=== PATIENT | female | born 1985 | race Caucasian/White ===

== ENCOUNTER 2019-09-10 20:51 | Emergency (ER) | payer OTHER ==
[2019-09-10 21:00] VITALS: BP 122/72; PULSE 88; TEMP 98.5; BMI 31.6
[2019-09-10] MEDS ORDERED: IBUPROFEN 600 MG TABLET (FP) PO ONE ×2 (21:20→21:25)
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
== END 2019-09-10 21:57 | disposition home or self-care (01) ==
LOC: FER 20:51 → SUPCPDRO 20:51 → FER 21:57
DX: J20.9 Acute bronchitis, unspecified (principal)
CPT/HCPCS: 71045-TC-FY; 99284-25; U0003

== ENCOUNTER 2020-02-03 16:47 | Emergency (ER) | payer OTHER ==
[2020-02-03] MEDS ORDERED: DALBAVANCIN HCL 1,500 MG in DEXTROSE 5%-WATER - 500 ML IVPB ONE (17:05)
[2020-02-03 17:27] VITALS: TEMP 99.4; BMI 32.0
[2020-02-03 18:16] VITALS: BP 105/64; PULSE 87
[2020-02-03] MEDS ORDERED: CEPHALEXIN MONOHYDRATE 500 MG CAPSULE (UD) PO ONE (18:34)
[2020-02-03] MEDS ORDERED: SULFAMETHOXAZOLE/TRIMETHOPRIM 800MG/160MG D.S. TABLET PO ONE (18:34)
[2020-02-03] MEDS ORDERED: CEPHALEXIN MONOHYDRATE 500 MG CAPSULE (UD) ONE (18:37)
[2020-02-03] MEDS ORDERED: SULFAMETHOXAZOLE/TRIMETHOPRIM 800MG/160MG D.S. TABLET ONE (18:37)
[2020-02-03 19:31] LABS: EPITHELIAL CELLS MODERATE /hpf; URINE MUCUS 1+
[2020-02-03 21:42] LABS: COCAINE, UR NEGATIVE ng/ml (CUTOFF=300); METHADONE, UR NEGATIVE ng/ml (CUTOFF=300); URINE BARBITURATES NEGATIVE ng/ml (CUTOFF=200)
[2020-02-03 21:43] LABS: PHENCYCLIDINE,URINE NEGATIVE ng/ml (CUTOFF=25); URINE AMPHETAMINES NEGATIVE ng/ml (CUTOFF=500)
[2020-02-03 21:46] LABS: URINE BENZODIAZEPINES NEGATIVE ng/ml (CUTOFF=200)
[2020-02-03 21:49] LABS: OPIATES, URI POSITIVE ng/ml (CUTOFF=300)
== END 2020-02-03 19:00 ==
LOC: FER 16:47
PROC: 0H9DXZZ Drainage of Right Lower Arm Skin, External Approach (ICD-10-PCS; principal; 2020-02-03)
PROC: 3E03329 Introduction of Other Anti-infective into Peripheral Vein, Percutaneous Approach (ICD-10-PCS; 2020-02-03)
DX: M65.031 Abscess of tendon sheath, right forearm (principal)
CPT/HCPCS: 80307; 81003; 81015; 84703; 87070; 87205; 99285-25

== ENCOUNTER 2020-02-06 15:44 | Emergency (ER) | payer OTHER ==
[2020-02-06 15:52] VITALS: BP 132/79; PULSE 94; TEMP 98; BMI 31.8
== END 2020-02-06 16:11 | disposition home or self-care (01) ==
LOC: FER 15:44
DX: L02.414 Cutaneous abscess of left upper limb (principal); Z48.01 Encounter for change or removal of surgical wound dressing
CPT/HCPCS: 99281-25

== ENCOUNTER 2022-03-14 18:22 | Inpatient (IN) | payer OTHER ==
[2022-03-14 19:12] VITALS: BMI 34.0
[2022-03-14] MEDS ORDERED: MELATONIN 5 MG TABLETS PO PRN (19:51)
[2022-03-14] MEDS ORDERED: POLYETHYLENE GLYCOL (HEALTHYLAX) 3350 17 GM PACKET PO PRN (19:51)
[2022-03-14] MEDS ORDERED: ACETAMINOPHEN 325 MG TABLET (FP) PO PRN ×2 (19:51)
[2022-03-14] MEDS ORDERED: NALOXONE HCL (KLOXXADO) 8 MG SPRAY NS PRN (19:51)
[2022-03-14] MEDS ORDERED: P-EPHED 60MG/TRIPROLIDI 2.5MG TABLET PO PRN (19:51)
[2022-03-14] MEDS ORDERED: MAG HYDROX/AL HYDROX/SIMETH 30 ML UNIT-DOSE CUP PO PRN (19:51)
[2022-03-14] MEDS ORDERED: BENZOCAINE/MENTHOL (CHLORASEPTIC ) LOZENGE MM PRN (19:51)
[2022-03-14] MEDS ORDERED: NALOXONE HCL 0.4 MG/ML VIAL IM PRN (19:51)
[2022-03-14] MEDS ORDERED: MAGNESIUM HYDROX 2400MG/30ML ORAL SUSPENSION 30 ML CUP PO PRN (19:51)
[2022-03-14] MEDS ORDERED: ONDANSETRON *ODT* 4 MG TABLET SL PRN (19:51)
[2022-03-14] MEDS ORDERED: BISMUTH SUBSALICYLATE 524 MG/30 ML PO PRN (19:51)
[2022-03-14] MEDS ORDERED: NICOTINE POLACRILEX 4 MG GUM BUC PRN (19:51)
[2022-03-14] MEDS ORDERED: DICYCLOMINE HCL 10 MG CAPSULE PO PRN (19:51)
[2022-03-14] MEDS ORDERED: LOPERAMIDE HCL 2 MG CAPSULE PO PRN (19:51)
[2022-03-14] MEDS ORDERED: IBUPROFEN 600 MG TABLET (FP) PO PRN (19:51)
[2022-03-14] MEDS ORDERED: guaiFENesin 200 MG/10 ML 10 ML UNIT-DOSE CUPS PO PRN (19:51)
[2022-03-14] MEDS ORDERED: IBUPROFEN 400 MG TABLET (FP) PO PRN (19:51)
[2022-03-14] MEDS ORDERED: NICOTINE 10 MG CARTRIDGE (INHALER) IH PRN (19:51)
[2022-03-14] MEDS ORDERED: chlordiazePOXIDE HCL 25 MG CAPSULE PO ONE (20:04)
[2022-03-14] MEDS ORDERED: chlordiazePOXIDE HCL 25 MG CAPSULE PO PRN (20:04)
[2022-03-14] MEDS: SULFAMETHOXAZOLE/TRIMETHOPRIM 800MG/160MG D.S. TABLET PO SCH (21:54)
[2022-03-14] MEDS: levETIRAcetam 500 MG TABLET (FP) PO SCH (21:54)
[2022-03-14] MEDS: THIAMINE HCL 100 MG TABLET (FP) PO SCH (21:54)
[2022-03-14] MEDS: BACITRACIN 0.9 GM PACKET TP SCH (21:56)
[2022-03-14] MEDS ORDERED: lamoTRIgine 100 MG TABLET PO ONE (22:00)
[2022-03-14] MEDS: chlordiazePOXIDE HCL 25 MG CAPSULE PO SCH (22:00)
[2022-03-15] MEDS: CLINDAMYCIN HCL 150 MG CAPSULE (FP) PO SCH ×5 (01:16→23:09)
[2022-03-15] MEDS: chlordiazePOXIDE HCL 25 MG CAPSULE PO SCH ×4 (05:43→22:06)
[2022-03-15] MEDS: PRENATAL VITAMINS W/ FOLIC ACID TABLET (FP) PO SCH (10:39)
[2022-03-15] MEDS: SULFAMETHOXAZOLE/TRIMETHOPRIM 800MG/160MG D.S. TABLET PO SCH ×2 (10:39→22:07)
[2022-03-15] MEDS: BACITRACIN 0.9 GM PACKET TP SCH ×2 (10:39→22:07)
[2022-03-15] MEDS: levETIRAcetam 500 MG TABLET (FP) PO SCH (10:39)
[2022-03-15 10:51] LABS: CALCIUM 8.5 mg/dL (8.5-10.1)
[2022-03-15 10:52] LABS: ALBUMIN 3.2 g/dl (3.4-5.0); BLOOD UREA NITROGEN 10.2 mg/dL (7-18)
[2022-03-15 10:53] LABS: HEMATOCRIT 36.8 % (32.4-45.2); HEMOGLOBIN 12.1 GM/dL (10.7-15.3); MCH 29.7 pg (25.7-33.7); MCHC 32.9 g/dl (32.0-36.0); MEAN CELL VOLUME 90.3 fl (80-96); MEAN PLT VOLUME 8.4 fl (7.5-11.1); PLATELET COUNT 309 10^3/uL (134-434); RBC 4.08 M/mm3 (3.60-5.2); RDW 14.2 % (11.6-15.6); WHITE BLOOD COUNT 7.1 K/mm3 (4.0-10.0)
[2022-03-15 10:55] LABS: CREATININE 0.7 mg/dL (0.55-1.3)
[2022-03-15 10:57] LABS: BILIRUBIN,TOTAL 0.4 mg/dL (0.2-1); TOT PROT 6.2 g/dl (6.4-8.2)
[2022-03-15] MEDS: lamoTRIgine 100 MG TABLET PO SCH (13:03)
[2022-03-15] MEDS ORDERED: SUVOREXANT 10 MG TABLET PO PRN (22:00)
[2022-03-15] MEDS: THIAMINE HCL 100 MG TABLET (FP) PO SCH (22:06)
[2022-03-16] MEDS: chlordiazePOXIDE HCL 25 MG CAPSULE PO SCH ×4 (05:21→22:42)
[2022-03-16] MEDS: CLINDAMYCIN HCL 150 MG CAPSULE (FP) PO SCH ×3 (06:20→17:45)
[2022-03-16] MEDS: SULFAMETHOXAZOLE/TRIMETHOPRIM 800MG/160MG D.S. TABLET PO SCH ×2 (10:16→22:42)
[2022-03-16] MEDS: BACITRACIN 0.9 GM PACKET TP SCH ×2 (10:16→22:42)
[2022-03-16] MEDS: lamoTRIgine 100 MG TABLET PO SCH (10:16)
[2022-03-16] MEDS: PRENATAL VITAMINS W/ FOLIC ACID TABLET (FP) PO SCH (10:16)
[2022-03-16] MEDS ORDERED: BUPRENORPHINE/NALOXONE 4 MG/1 MG FILM PACKET SL ONE (11:00)
[2022-03-16] MEDS: cloNIDine HCL 0.1 MG TABLET PO PRN (17:43)
[2022-03-16] MEDS ORDERED: BUPRENORPHINE/NALOXONE 4 MG/1 MG FILM PACKET SL SCH (20:15)
[2022-03-16] MEDS: BUPRENORPHINE/NALOXONE 4 MG/1 MG FILM PACKET SL SCH (21:30)
[2022-03-16] MEDS: THIAMINE HCL 100 MG TABLET (FP) PO SCH (22:42)
[2022-03-17] MEDS ORDERED: chlordiazePOXIDE HCL 10 MG CAPSULE PO PRN
[2022-03-17] MEDS: CLINDAMYCIN HCL 150 MG CAPSULE (FP) PO SCH ×5 (00:30→23:54)
[2022-03-17] MEDS: chlordiazePOXIDE HCL 10 MG CAPSULE PO SCH ×4 (05:30→22:12)
[2022-03-17] MEDS: BACITRACIN 0.9 GM PACKET TP SCH ×2 (10:38→22:11)
[2022-03-17] MEDS: PRENATAL VITAMINS W/ FOLIC ACID TABLET (FP) PO SCH (10:38)
[2022-03-17] MEDS: lamoTRIgine 100 MG TABLET PO SCH (10:38)
[2022-03-17] MEDS: SULFAMETHOXAZOLE/TRIMETHOPRIM 800MG/160MG D.S. TABLET PO SCH ×2 (10:39→22:11)
[2022-03-17] MEDS: BUPRENORPHINE/NALOXONE 4 MG/1 MG FILM PACKET SL SCH (10:40)
[2022-03-17] MEDS: AMITRIPTYLINE HCL 25 MG TABLET PO SCH (22:11)
[2022-03-17] MEDS: METHOCARBAMOL 500 MG TABLET PO PRN (22:12)
[2022-03-17] MEDS: THIAMINE HCL 100 MG TABLET (FP) PO SCH (22:12)
[2022-03-18] MEDS: chlordiazePOXIDE HCL 10 MG CAPSULE PO SCH ×2 (05:49→17:57)
[2022-03-18] MEDS: CLINDAMYCIN HCL 150 MG CAPSULE (FP) PO SCH ×4 (05:50→23:50)
[2022-03-18] MEDS: SULFAMETHOXAZOLE/TRIMETHOPRIM 800MG/160MG D.S. TABLET PO SCH ×2 (10:13→22:23)
[2022-03-18] MEDS: lamoTRIgine 100 MG TABLET PO SCH (10:13)
[2022-03-18] MEDS: BUPRENORPHINE/NALOXONE 4 MG/1 MG FILM PACKET SL SCH (10:14)
[2022-03-18] MEDS: BACITRACIN 0.9 GM PACKET TP SCH ×2 (10:14→22:23)
[2022-03-18] MEDS: PRENATAL VITAMINS W/ FOLIC ACID TABLET (FP) PO SCH (10:14)
[2022-03-18] MEDS ORDERED: BUPRENORPHINE/NALOXONE 2 MG/0.5 MG FILM PACKET SL SCH (18:00)
[2022-03-18] MEDS: AMITRIPTYLINE HCL 25 MG TABLET PO SCH (22:22)
[2022-03-18] MEDS: THIAMINE HCL 100 MG TABLET (FP) PO SCH (22:23)
[2022-03-18] MEDS: METHOCARBAMOL 500 MG TABLET PO PRN (22:25)
[2022-03-18] MEDS: cloNIDine HCL 0.1 MG TABLET PO PRN (22:25)
[2022-03-19] MEDS ORDERED: chlordiazePOXIDE HCL 10 MG CAPSULE PO ONE (05:00)
[2022-03-19] MEDS: CLINDAMYCIN HCL 150 MG CAPSULE (FP) PO SCH (05:19)
[2022-03-19 05:41] VITALS: RESP 18; TEMP 97.5
[2022-03-19 09:45] VITALS: BP 102/59; PULSE 122
[2022-03-19] MEDS: PRENATAL VITAMINS W/ FOLIC ACID TABLET (FP) PO SCH (09:45)
[2022-03-19] MEDS: SULFAMETHOXAZOLE/TRIMETHOPRIM 800MG/160MG D.S. TABLET PO SCH (09:45)
[2022-03-19] MEDS: lamoTRIgine 100 MG TABLET PO SCH (09:45)
[2022-03-19] MEDS: BUPRENORPHINE/NALOXONE 4 MG/1 MG FILM PACKET SL SCH (09:45)
[2022-03-19] MEDS: BACITRACIN 0.9 GM PACKET TP SCH (09:47)
== END 2022-03-19 09:52 | disposition home or self-care (01) | DRG 897 ==
LOC: YASAS 18:22 → Y6N 21:05
PROVIDERS: ADMIT Allergy & Immunology; ATTEND Family Medicine
PROC: HZ2ZZZZ Detoxification Services for Substance Abuse Treatment (ICD-10-PCS; principal; 2022-03-14)
DX: F13.230 Sedative, hypnotic or anxiolytic dependence with withdrawal, uncomplicated (principal); F11.20 Opioid dependence, uncomplicated; F17.210 Nicotine dependence, cigarettes, uncomplicated; F31.9 Bipolar disorder, unspecified; F98.8 Other specified behavioral and emotional disorders with onset usually occurring in childhood and adolescence; G62.9 Polyneuropathy, unspecified; G40.909 Epilepsy, unspecified, not intractable, without status epilepticus; Z87.820 Personal history of traumatic brain injury; Z28.310 Unvaccinated for COVID-19; Z91.410 Personal history of adult physical and sexual abuse
CPT/HCPCS: 36415; 80053; 81025; 85027; 86780; 87811; 90853; 93005; 93010; C9803-CS; U0003; U0005